=== PATIENT | male | born 1950 | race Caucasian/White ===

== ENCOUNTER 2017-05-01 07:03 | Day surgery (SDC) | payer MEDICARE, BC ==
[2017-04-26 15:57] VITALS: BMI 33.3
[~2017-05-01 07:03] MED LIST: LACTATED RINGERS 1,000 ML IV SCH
[2017-05-01 07:24] LABS: Glucose,Whole Blood 139 mg/dL (75-99)
[2017-05-01] MEDS ORDERED: PROPOFOL 10 MG/ML 20 ML VIAL IV ONE (07:29)
[2017-05-01] MEDS ORDERED: LACTATED RINGERS 1,000 ML IV ONE (07:34)
--- NOTE | 2017-05-01 07:34 | P.GSHP ---
History of Present Illness H&P Date: 05/01/17 CHIEF COMPLAINT: Colon screen HISTORY OF PRESENT ILLNESS: The patient is a 67-year-old male who presents for colon screen. Lower endoscopy was offered for further evaluation and management. PAST MEDICAL HISTORY: Please see list. PAST SURGICAL HISTORY: Please see list. MEDICATIONS: Please see list. ALLERGIES: Please see list. SOCIAL HISTORY: No illicit drug use FAMILY HISTORY: No reports of Crohn disease or ulcerative colitis. REVIEW OF ORGAN SYSTEMS: CONSTITUTIONAL: No reports of fevers or chills. PHYSICAL EXAM: VITAL SIGNS: Stable GENERAL: Well-developed pleasant in no acute distress. HEENT: No scleral icterus. Extraocular movements grossly intact. Moist buccal mucosa. NECK: Supple without lymphadenopathy. CHEST: Unlabored respirations. Equal bilateral excursions. CARDIOVASCULAR: Regular rate and rhythm. Distal 2+ pulses. ABDOMEN: Soft, nontender, nondistended. MUSCULOSKELETAL: No clubbing, cyanosis, or edema. ASSESSMENT: 1. Colon screen. PLAN: 1. Recommend proceeding with a lower endoscopy Past Medical History Past Medical History: Coronary Artery Disease (CAD), Diabetes Mellitus, Hyperlipidemia, Hypertension, Prostate Disorder Additional Past Medical History / Comment(s): enlarged prostate History of Any Multi-Drug Resistant Organisms: None Reported Past Surgical History: Coronary Bypass/CABG, Heart Catheterization Additional Past Surgical History / Comment(s): CABG-2 vessel Past Anesthesia/Blood Transfusion Reactions: No Reported Reaction Smoking Status: Never smoker - Past Family History Mother Family Medical History: Cancer Additional Family Medical History / Comment(s): breast Father Family Medical History: Cancer Additional Family Medical History / Comment(s): prostate Medications and Allergies Home Medications Medication Instructions Recorded Confirmed Type Aspirin 162 mg PO DAILY 04/26/17 04/26/17 History Atorvastatin [Lipitor] 80 mg PO DAILY 04/26/17 04/26/17 History Cholecalciferol [Vitamin D3] 1,000 unit PO DAILY 04/26/17 04/26/17 History Metoprolol Tartrate [Lopressor] 25 mg PO BID 04/26/17 04/26/17 History Tamsulosin HCl [Flomax] 0.8 mg PO DAILY 04/26/17 04/26/17 History Venlafaxine HCl [Effexor XR] 150 mg PO QAM 04/26/17 04/26/17 History metFORMIN HCL 1,000 mg PO BID 04/26/17 04/26/17 History Allergies Allergy/AdvReac Type Severity Reaction Status Date / Time No Known Allergies Allergy Verified 04/26/17 15:47 Results - Labs Abnormal Lab Results - Last 24 Hours (Table) 05/01/17 Range/Units 07:20 POC Glucose (mg/dL) 139 H (75-99) mg/dL
--- NOTE | 2017-05-01 07:55 | P.PCN ---
Date of Procedure: 05/01/17 Preoperative Diagnosis: Postoperative Diagnosis: Procedure(s) Performed: Implants: Indications for Procedure: Operative Findings: Description of Procedure: PREOPERATIVE DIAGNOSIS: Colonoscopy screening. Personal history of colon polyps POSTOPERATIVE DIAGNOSIS: Colonoscopy screening. Personal history of colon polyps Diverticulosis, scattered. OPERATION: Colonoscopy to the ileocecal valve and appendiceal orifice. SURGEON: Milena Mcmillan MD. ANESTHESIA: MAC. INDICATIONS: The patient is a 67-year-old male who presents for colonoscopy screening. His last colonoscopy was 12 years ago. He has a personal history of colon polyps. Benefits and risks were described and informed consent was obtained. DESCRIPTION OF PROCEDURE: The patient had undergone Gatorade, MiraLAX and Dulcolax prep. He had been brought into the operating room and laid in the left lateral decubitus position. After adequate intravenous sedation, the rectum was examined with 2% lidocaine jelly. No external hemorrhoids were encountered. The rectal tone was within normal limits. No lesions were palpated in the rectal vault. The prostate was smooth and without nodularity. An Olympus colonoscope was advanced until the ileocecal valve and appendiceal orifice were clearly viewed. The prep was excellent with fair; however over 700 mL of effluent was evacuated. The scope was removed with visualization of each mucosal fold. Scattered diverticulosis was encountered. No colonic polyps were found. No evidence of focal colitis was found. Retroflexion of the scope demonstrated grade 1 internal hemorrhoids without active bleeding or inflammation. The colon was desufflated. The patient had tolerated the procedure well. Withdrawal time was over 6 minutes. FINDINGS: Internal hemorrhoids, grade 1 No external prolapsed hemorrhoids. No arteriovenous malformations. No adenomatous polyps. No focal colitis. RECOMMENDATIONS: Lower endoscopy in 5 years per screening guidelines, 2021. Plan - Discharge Summary New Discharge Prescriptions: No Action Cholecalciferol [Vitamin D3] 1,000 unit PO DAILY metFORMIN HCL 1,000 mg PO BID Tamsulosin HCl [Flomax] 0.8 mg PO DAILY Atorvastatin [Lipitor] 80 mg PO DAILY Aspirin 162 mg PO DAILY Venlafaxine HCl [Effexor XR] 150 mg PO QAM Metoprolol Tartrate [Lopressor] 25 mg PO BID Discharge Medication List Aspirin 162 mg PO DAILY 04/26/17 [History] Atorvastatin [Lipitor] 80 mg PO DAILY 04/26/17 [History] Cholecalciferol [Vitamin D3] 1,000 unit PO DAILY 04/26/17 [History] Metoprolol Tartrate [Lopressor] 25 mg PO BID 04/26/17 [History] Tamsulosin HCl [Flomax] 0.8 mg PO DAILY 04/26/17 [History] Venlafaxine HCl [Effexor XR] 150 mg PO QAM 04/26/17 [History] metFORMIN HCL 1,000 mg PO BID 04/26/17 [History] Follow up Appointment(s)/Referral(s): Milena Mcmillan MD [STAFF PHYSICIAN] - 1 Week Activity/Diet/Wound Care/Special Instructions: Repeat colonoscopy in 5 years, 2021 Discharge Disposition: HOME SELF-CARE
[2017-05-01 07:57] VITALS: TEMP 97.6
[2017-05-01 08:24] VITALS: PULSE 90
[2017-05-01 08:44] VITALS: BP 130/70; RESP 16
== END 2017-05-01 08:53 | disposition home or self-care (01) ==
LOC: ORWHC2ENDO 07:03
PROVIDERS: ATTEND Surgery Plastic and Reconstructive Surgery
DX: Z12.11 Encounter for screening for malignant neoplasm of colon (principal); K57.30 Diverticulosis of large intestine without perforation or abscess without bleeding; K64.0 First degree hemorrhoids; Z86.010 Personal history of colon polyps; I25.10 Atherosclerotic heart disease of native coronary artery without angina pectoris; I10 Essential (primary) hypertension; E11.9 Type 2 diabetes mellitus without complications; Z79.84 Long term (current) use of oral hypoglycemic drugs; E78.5 Hyperlipidemia, unspecified; N40.0 Benign prostatic hyperplasia without lower urinary tract symptoms; Z95.1 Presence of aortocoronary bypass graft; Z79.82 Long term (current) use of aspirin; Z79.899 Other long term (current) drug therapy; K21.9 Gastro-esophageal reflux disease without esophagitis
CPT/HCPCS: J2704; G0105; 45378

== ENCOUNTER 2021-11-22 07:44 | Day surgery (SDC) | payer MEDICARE, BC ==
[2021-11-22] MEDS ORDERED: LACTATED RINGERS 1,000 ML IV SCH (07:46)
[2021-11-22] MEDS ORDERED: LIDOCAINE 1% (10MG/ML) FOR IV START INTRADERMA PRN (07:46)
[2021-11-22 08:23] VITALS: TEMP 96.5
[2021-11-22 08:32] LABS: Glucose,Whole Blood 120 mg/dL (75-99)
--- NOTE | 2021-11-22 08:38 | P.GSHP ---
History of Present Illness H&P Date: 11/22/21 CHIEF COMPLAINT: Colon screen HISTORY OF PRESENT ILLNESS: The patient is a 71-year-old male who presents for colon screen. Lower endoscopy was offered for further evaluation and management. PAST MEDICAL HISTORY: Please see list. PAST SURGICAL HISTORY: Please see list. MEDICATIONS: Please see list. ALLERGIES: Please see list. SOCIAL HISTORY: No illicit drug use FAMILY HISTORY: No reports of Crohn disease or ulcerative colitis. REVIEW OF ORGAN SYSTEMS: CONSTITUTIONAL: No reports of fevers or chills. PHYSICAL EXAM: VITAL SIGNS: Stable GENERAL: Well-developed pleasant in no acute distress. HEENT: No scleral icterus. Extraocular movements grossly intact. Moist buccal mucosa. NECK: Supple without lymphadenopathy. CHEST: Unlabored respirations. Equal bilateral excursions. CARDIOVASCULAR: Regular rate and rhythm. Distal 2+ pulses. ABDOMEN: Soft, nontender, nondistended. MUSCULOSKELETAL: No clubbing, cyanosis, or edema. ASSESSMENT: 1. Colon screen. PLAN: 1. Recommend proceeding with a lower endoscopy Past Medical History Past Medical History: Coronary Artery Disease (CAD), Diabetes Mellitus, Hyperlipidemia, Hypertension, Prostate Disorder Additional Past Medical History / Comment(s): enlarged prostate History of Any Multi-Drug Resistant Organisms: None Reported Past Surgical History: Coronary Bypass/CABG, Heart Catheterization Additional Past Surgical History / Comment(s): CABG-2 vessel Past Anesthesia/Blood Transfusion Reactions: No Reported Reaction Past Psychological History: Anxiety, Depression Smoking Status: Never smoker Past Alcohol Use History: Daily Additional Past Alcohol Use History / Comment(s): <14 drinks per week Past Drug Use History: None Reported - Past Family History Mother Family Medical History: Cancer Additional Family Medical History / Comment(s): breast Father Family Medical History: Cancer Additional Family Medical History / Comment(s): prostate Medications and Allergies Home Medications Medication Instructions Recorded Confirmed Type Aspirin 162 mg PO DAILY 04/26/17 11/22/21 History Atorvastatin [Lipitor] 80 mg PO DAILY 04/26/17 11/22/21 History Cholecalciferol [Vitamin D3] 1,000 unit PO DAILY 04/26/17 11/22/21 History Metoprolol Tartrate [Lopressor] 25 mg PO BID 04/26/17 11/22/21 History Tamsulosin HCl [Flomax] 0.8 mg PO HS 04/26/17 11/22/21 History Venlafaxine HCl [Effexor XR] 150 mg PO QAM 04/26/17 11/22/21 History metFORMIN HCL [Glucophage] 1,000 mg PO BID 04/26/17 11/22/21 History Dulaglutide [Trulicity] 1 dose SQ MO 11/20/21 11/22/21 History Ezetimibe [Zetia] 10 mg PO HS 11/20/21 11/22/21 History Allergies Allergy/AdvReac Type Severity Reaction Status Date / Time No Known Allergies Allergy Verified 11/22/21 08:27 Surgical - Exam Vital Signs Temp Pulse Resp BP Pulse Ox 96.5 F L 88 18 144/75 97 11/22/21 08:22 11/22/21 08:22 11/22/21 08:22 11/22/21 08:22 11/22/21 08:22 Results - Labs Abnormal Lab Results - Last 24 Hours (Table) 11/22/21 Range/Units 08:26 POC Glucose (mg/dL) 120 H (75-99) mg/dL
[2021-11-22] MEDS ORDERED: LIDOCAINE 1% INJ 10MG/ML (20 ML MDV) ONE (08:40)
[2021-11-22] MEDS ORDERED: PROPOFOL 10 MG/ML 20 ML VIAL IV ONE (08:40)
[2021-11-22 09:05] VITALS: RESP 16
--- NOTE | 2021-11-22 09:10 | P.PCN ---
Date of Procedure: 11/22/21 Description of Procedure: PREOPERATIVE DIAGNOSIS: Personal history of colon polyps Colonoscopy screening POSTOPERATIVE DIAGNOSIS: Tubular adenoma ascending colon Sigmoid diverticulosis OPERATION: Colonoscopy to the ileocecal valve and appendiceal orifice, cecum Colonoscopy with cold forceps biopsy SURGEON: Milena Mcmillan MD. ANESTHESIA: MAC. INDICATIONS: The patient is an 71-year-old male who presents family history of malignant colon polyps and personal history of colon polyps. Last colonoscopy 5 years. Benefits and risks were described and informed consent was obtained. DESCRIPTION OF PROCEDURE: The patient had undergone Sutab prep. The patient had been brought into the operating room and laid in the left lateral decubitus position. After adequate intravenous sedation, the rectum was examined with 2% lidocaine jelly. The prostate fossa was firm. No external hemorrhoids were encountered. The rectal tone was within normal limits. No lesions were palpated in the rectal vault. An Olympus colonoscope was advanced until the cecum, ileocecal valve and appendiceal orifice were clearly viewed. The prep was good. Sigmoid diverticulosis was encountered. Colonic polyps were found and removed. No evidence of focal colitis was found. Retroflexion of the scope demonstrated grade 1 internal hemorrhoids without active bleeding or inflammation. The colon was desufflated. The patient had tolerated the procedure well. Withdrawal time was over 6 minutes. FINDINGS: Aronchick preparation quality scale 2 (1-5) Internal hemorrhoids, grade 1 No external hemorrhoids, grade 4. No arteriovenous malformations. Sigmoid diverticulosis, few Removal of 1 polyps: - Cold forceps biopsy at descending colon, 4 mm polyp. No focal colitis. RECOMMENDATIONS: Repeat colonoscopy in 3 years, 2024 Plan - Discharge Summary Discharge Rx Participant: No New Discharge Prescriptions: Continue Cholecalciferol [Vitamin D3 (25 Mcg = 1000 Iu)] 1,000 unit PO DAILY metFORMIN HCL [Glucophage] 1,000 mg PO BID Tamsulosin HCl [Flomax] 0.8 mg PO HS Atorvastatin [Lipitor] 80 mg PO DAILY Aspirin 162 mg PO DAILY Venlafaxine HCl [Effexor XR] 150 mg PO QAM Metoprolol Tartrate [Lopressor] 25 mg PO BID Dulaglutide [Trulicity] 1 dose SQ MO Ezetimibe [Zetia] 10 mg PO HS Discharge Medication List Aspirin 162 mg PO DAILY 04/26/17 [History] Atorvastatin [Lipitor] 80 mg PO DAILY 04/26/17 [History] Cholecalciferol [Vitamin D3 (25 Mcg = 1000 Iu)] 1,000 unit PO DAILY 04/26/17 [History] Metoprolol Tartrate [Lopressor] 25 mg PO BID 04/26/17 [History] Tamsulosin HCl [Flomax] 0.8 mg PO HS 04/26/17 [History] Venlafaxine HCl [Effexor XR] 150 mg PO QAM 04/26/17 [History] metFORMIN HCL [Glucophage] 1,000 mg PO BID 04/26/17 [History] Dulaglutide [Trulicity] 1 dose SQ MO 11/20/21 [History] Ezetimibe [Zetia] 10 mg PO HS 11/20/21 [History] Follow up Appointment(s)/Referral(s): Milena Mcmillan MD [STAFF PHYSICIAN] - As Needed Patient Instructions/Handouts: Diverticulosis (GEN), Colorectal Polyps (GEN), Diverticulosis Diet (GEN) Activity/Diet/Wound Care/Special Instructions: Repeat colonoscopy in 3 years, 2024 Discharge Disposition: HOME SELF-CARE
[2021-11-22 09:17] VITALS: BP 123/70; PULSE 79
== END 2021-11-22 09:35 | disposition home or self-care (01) ==
LOC: ORWHC2ENDO 07:44
PROVIDERS: ATTEND Surgery Plastic and Reconstructive Surgery
DX: Z12.11 Encounter for screening for malignant neoplasm of colon (principal); D12.4 Benign neoplasm of descending colon; K64.0 First degree hemorrhoids; K57.30 Diverticulosis of large intestine without perforation or abscess without bleeding; I25.119 Atherosclerotic heart disease of native coronary artery with unspecified angina pectoris; E11.9 Type 2 diabetes mellitus without complications; E78.5 Hyperlipidemia, unspecified; I10 Essential (primary) hypertension; N40.0 Benign prostatic hyperplasia without lower urinary tract symptoms; Z95.1 Presence of aortocoronary bypass graft; Z98.890 Other specified postprocedural states; F41.9 Anxiety disorder, unspecified; F32.A Depression, unspecified; Z80.52 Family history of malignant neoplasm of bladder; Z80.42 Family history of malignant neoplasm of prostate; Z79.899 Other long term (current) drug therapy; Z79.84 Long term (current) use of oral hypoglycemic drugs; Z79.82 Long term (current) use of aspirin
CPT/HCPCS: 88305; 45380; J2001; J2704

== ENCOUNTER → 2024-08-18 | Outpatient (CLI) | payer MEDICARE ==
[2024-08-18 16:06] LABS: African American GFR (CKD) >90 (>60 ml/min/1.73 sqM); Blood Urea Nitrogen 17 mg/dL (9-20); Non-African American GFR(CKD) >90 (>60 ml/min/1.73 sqM)
--- NOTE | 2024-08-21 23:23 | CT ---
EXAMINATION TYPE: CT urogram wo/w con DATE OF EXAM: 08/18/2024 5:37 PM COMPARISON: None. CLINICAL INDICATION: Male, 74 years old with history of R31.1 BENIGN ESSENTIAL MICROSCOPIC HEMATURIA, Micro hematuria x several months. TECHNIQUE: Axial images were obtained from above the diaphragm to the pubic rami in the axial plane a t 5 mm thick sections. Reconstructed images are reviewed on the computer in the coronal plane. CONTRAST: 100ml mL of Isovue 370. Study performed DLP: 2190.8 mGycm, Automated exposure control for dose reduction was used. FINDINGS: Limited CT sections are obtained the lung bases. The lung bases are clear. Coronary artery calcific ations present CT ABDOMEN: There is a periumbilical hernia with an opening of 1.4 cm containing mesenteric fat. No l oops of bowel are involved. Liver: Normal Spleen: Normal Pancreas: Normal Adrenal glands: The adrenal glands are normal. Gallbladder: Normal Kidneys: No masses are evident. No hydronephrosis is present. There is a 1.6 cm cyst along the post erior medial mid right kidney There is a 0.5 cm nonobstructing renal stone posterior lateral right m id kidney. There is a 0.9 cm nonobstructing renal stone inferior pole right kidney. There is a punct ate nonobstructing renal stone posterior lateral mid to inferior pole right kidney measuring 0.3 cm. Aorta: Vascular calcification is within the aorta. Inferior vena cava: Normal. CT PELVIS: Loops of bowel within the abdomen and pelvis are normal. There are some fluid-filled small bowel loo ps within the midabdomen. Mild ileus could be considered. This study is without oral contrast limit s bowel evaluation. Appendix: Normal as visualized. Urinary bladder: Normal. Genitourinary structures: Prostate is somewhat prominent. On images of the urinary bladder that appea rs to impression from the prostate. Osseous structures: No suspicious lytic or sclerotic lesions. IMPRESSION: 1. No suspicious obstruction or filling defects within the renal collecting system as visualized. 2. Nonobstructing renal stones right kidney discussed above. 3. Prominent prostate which has some posterior impression into the urinary bladder. Consider correlat ion with ultrasound. [facility], , 08/21/2024 11:21 PM
== END | disposition home or self-care (01) ==
LOC: RADCTMAIN 15:25
PROVIDERS: ATTEND Urology
DX: R31.1 Benign essential microscopic hematuria (principal); N20.0 Calculus of kidney; K42.9 Umbilical hernia without obstruction or gangrene
CPT/HCPCS: 82565; 84520; 74178; 36415; 74400; Q9967